=== PATIENT | female | born 1990 | race Caucasian/White ===

== ENCOUNTER 2022-05-21 13:11 | Emergency (ER) | payer MEDICAID ==
[~2022-05-21] VITALS: Ht 162.6 cm; Wt 52.2 kg
[2022-05-21 13:40] VITALS: BP 112/59
--- NOTE | 2022-05-21 13:40 | NUR ---
BIBS W/ C/O SCALP ITCHING AND DISCOMFORT X 1 MONTH, TOOK OTC MEDS NO RELIEF. TO ER BED 14.
--- NOTE | 2022-05-21 14:00 | NUR ---
PT SEEN BY MD AT BEDSIDE
[2022-05-21] MEDS ORDERED: TERB250T52 PO (14:26)
--- NOTE | 2022-05-21 14:39 | NUR ---
Patient discharged to home in stable condition. Written and verbal after care instructions given. Patient verbalizes understanding of instruction.
== END 2022-05-21 14:39 | disposition home or self-care (01) ==
LOC: ER 13:15
DX: B35.0 Tinea barbae and tinea capitis (principal); Z88.2 Allergy status to sulfonamides